=== PATIENT | male | born 1970 | race Caucasian/White ===

== ENCOUNTER 2024-11-26 06:44 | Day surgery (SDC) | payer BC ==
[2024-11-26] MEDS ORDERED: Depo-Medrol 40 MG/ML IM ONE (06:45)
[2024-11-26] MEDS ORDERED: LIDOCAINE HCL 2% 100 MG/5 ML IJ ONE (06:45)
[2024-11-26] MEDS ORDERED: propofoL IV ONE (08:20)
--- NOTE | 2024-11-26 09:40 | XRAY ---
Indication: Bilateral L4-S1 MBB. Intraoperative fluoroscopy provided for 13 seconds. 2 digital spot image submitted for interpretation demonstrates posterior needle tips projecting over expected left and right L4-S1 nerve roots. Correlate with intraoperative findings/report.
--- NOTE | 2024-11-26 09:42 | XRAY ---
13 seconds of fluoroscopy was used in surgery for a bilateral L4-S1 MBB.
== END 2024-11-26 08:50 | disposition home or self-care (01) ==
LOC: SDC-PAIN 06:44
PROVIDERS: ATTEND Psychiatry & Neurology Pain Medicine
DX: M47.816 Spondylosis without myelopathy or radiculopathy, lumbar region (principal); E11.9 Type 2 diabetes mellitus without complications
CPT/HCPCS: 64493; 64494; 72020; 77002; 82947; J2704

== ENCOUNTER 2024-12-24 06:09 | Day surgery (SDC) | payer BC ==
[2024-12-24] MEDS ORDERED: Depo-Medrol 40 MG/ML IM ONE (06:10)
[2024-12-24] MEDS ORDERED: BUPIVACAINE 0.5% VIAL IJ ONE (06:10)
[2024-12-24] MEDS ORDERED: propofoL IV ONE (08:16)
--- NOTE | 2024-12-24 09:58 | XRAY ---
Indication: Bilateral L4-S1 MBB. Intraoperative fluoroscopy provided for 12 seconds. Single digital spot image submitted for interpretation demonstrates posterior needle tips projecting over expected left and right L4-S1 nerve roots. Correlate with intraoperative findings/report.
--- NOTE | 2024-12-24 10:01 | XRAY ---
12 seconds of fluoroscopy was used in surgery for a bilateral L4-S1 MBB.
== END 2024-12-24 08:49 | disposition home or self-care (01) ==
LOC: SDC-PAIN 06:09
PROVIDERS: ATTEND Psychiatry & Neurology Pain Medicine
DX: M47.816 Spondylosis without myelopathy or radiculopathy, lumbar region (principal); E11.9 Type 2 diabetes mellitus without complications
CPT/HCPCS: 64493; 64494; 72020; 77002; 82947; J2704